=== PATIENT | female | born 1990 | race Caucasian/White ===

== ENCOUNTER 2020-04-04 09:34 | Day surgery (SDC) | payer OTHER, SELFPAY ==
--- NOTE | 2020-04-01 14:13 | HP.PCM_ITS ---
- Problem List (1) Menorrhagia Status: Acute (2) Sterilization Status: Acute History and Physical Date of Admission: 04/04/20 DATE OF SERVICE: March 25, 2020 ? PROBLEM:?Menorrhagia, desires permanent sterilization, multiparous patient, de sires IUD ? DIAGNOSIS:?As noted above ? PAST SURGICAL HISTORY:? PAST SURGICAL HISTORY PAST SURGICAL HISTORY Procedure Laterality Date ? D&C ? 02/17/2018 ? DILATION W/CURETTAGE/EVAC ? 2018 ? PAST MEDICAL HISTORY:? PAST MEDICAL HISTORY PAST MEDICAL HISTORY Diagnosis Date ? Gestational hypertension, third trimester ? ? Mental disorder ? ? depression ? SUBJECTIVE:?Using condoms consistently for BC.? ? SOCIAL HISTORY:? SOCIAL HISTORY Social History ? Tobacco Use ? Smoking status: Never Smoker ? Smokeless tobacco: Never Used Substance Use Topics ? Alcohol use: Not Currently ? ? Comment: socially ? Drug use: No ? ALLERGIES ALLERGIES No Known Allergies ? Current Outpatient Medications on File Prior to Visit Medication Sig ? ergocalciferol, vitamin D2, (VITAMIN D2 ORAL) Take by mouth. ? busPIRone (BUSPAR) 10 mg tablet Take 10 mg by mouth twice daily. ? sertraline (ZOLOFT) 100 mg tablet Take 75 mg by mouth once daily. ? ? vit/iron fum/folic ac ( 1 + 1 ORAL) Take 1 tablet by mouth once daily. ? No current facility-administered medications on file prior to visit.? ? ? OBJECTIVE: ? VITALS: BP 108/70 ? Pulse 78 ? Resp 16 ? Ht 5' 8 (1.727 m) ? Wt 199 lb 9.6 oz (90.5 kg) ? LMP 03/01/2020 ? BMI 30.35 kg/m? ? HEENT: ?Normocephalic, atraumatic, Mucus membranes moist without lesions. ? NECK: ???Soft and Supple. ?No adenopathy , thyromegaly or bruits. ? SKIN: No lesions. ? CHEST: Clear to auscultation. ?No wheezes or rales. ?Good air exchange. ? HEART: Regular rate and rhythm ?No S3 or S4. ?No gallops or rubs. ? BACK: Nontender with no CVA tenderness. ? ABDOMEN: Soft, non-tender, non-distended, no masses, no hepatosplenomegaly. ? LOWER EXTREMITIES: There was no pitting edema, no palpable cords and no skin changes. ? ? ASSESSMENT:?Desires permanent sterilization and IUD placement ? PLAN:?Discussed treatment options for menorrhagia, and patient desires progesterone IUD. Reviewed r/b/a of IUD. Reviewed laparoscopic bilateral salpingectomy, and that the procedure is permanent and irreversible. Discussed efficacy of IUD for contraception. Discussed all other forms of control. The patient states she does not desire children in the future, and she wishes to proceed with permanent sterilization.?The rationale for the proposed surgery was discussed in addition to risks, benefits, and alternatives. ?General pre- and post-operative care was reviewed. ?Questions were answered. ?After discussion, the patient indicated a desire to proceed with the planned surgery. ? Pennie Denson,?DO
[2020-04-04] VITALS (8 sets, daily range): BP systolic 113–142; BP diastolic 60–88; PULSE 52–66; RESP 14–16; TEMP 36.4–36.8; O2SAT 95–100; BMI 29.4
--- NOTE | 2020-04-04 | FALS_PTH ---
PATIENT: LAURIE PERSAUD LOC: [facility] [place] U#:[id number] AGE/SX: 29/F ROOM: RE04/04/[address]: Dr. Pennie Denson DO : 1990 BED: DIS: 04/04/2020 SPEC #: [id number] RECD: 04/04/20 14:33 STATUS: GREY PETER #: [id number] JACIEL: 04/04/20 00:[address]: Pennie Denson DEPT: SURGICAL PATHOLOGY RECD BY: Bennie Giles ENTERED: 04/05/20 08:39 SP TYPE: FALL TUBES OTHR DR: No Primary Care Phys Tissues: Fallopian tube Procedures: Surgery Specimen Level II HEADER OPERATION: Laparoscopic bilateral salpingectomy, Mirena IUD insertion PRE-OP DIAGNOSIS: Menorrhagia; sterilization TISSUE SUBMITTED: Bilateral fallopian tubes MICROSCOPIC DIAGNOSIS Right and left fallopian tubes, bilateral salpingectomies: Two complete segments of fallopian tubes with no pathologic change. AM:kandi 04/08/20 MICROSCOPIC DESCRIPTION Slides are reviewed. GROSS DESCRIPTION Received in fixative is one container labeled with the patient's name and designated bilateral fallopian tubes. The specimen consists of bilateral fallopian tubes including fimbrial ends measuring 7 cm in length and up to 0.7 cm in diameter and 6 cm in length and up to 0.7 cm in diameter. The fallopian tubes are not identified as right or left. Sections reveal unremarkable cut surfaces. Stapler Coil Unit sections are submitted in two cassettes with each cassette containing one fallopian tube. / SJ:kandi 04/05/20 TC:4 CPT: 27448 x2
[2020-04-04 10:04] LABS: Internal QC Validated? YES +Cl - CLEAR BKGD; Pregnancy, Urine Negative Negative
[2020-04-04] MEDS: Lactated Ringers 1,000 ML 100 ML IV ×2 (10:20→13:22)
[2020-04-04 10:31] LABS: Hematocrit 41.2 % (37-47); Hemoglobin 13.5 g/dL (12.0-15.0); Mean Corp Hgb Conc 32.8 g/dL (32-36); Mean Corpuscular Hgb 29.8 pg (27.0-32.0); Mean Corpuscular Volume 90.9 fL (81-99); Mean Platelet Vol. 11.1 fl (6.2-12.0); Platelet Count 240 K/mm3 (150-450); RBC Distribution Width CV 12.9 % (11.6-14.6); RBC Distribution Width SD 42.2 fl (35.1-43.9); Red Blood Count 4.53 M/mm3 (4.2-5.4); White Blood Count 5.1 K/mm3 (4.4-11.0)
--- NOTE | 2020-04-04 13:16 | DCINST_ITS ---
Discharge Diet: No Restrictions Discharge Activity: May not drive while taking narcotic pain medications., May Shower May resume sexual activity in: 1 week - Nothing in the vagina for 1 week including no hot tubs, baths, pools, tampons, interrcourse. Weight Bearing Status: Weight bearing as tolerated Lifting Restrictions: No heavy lifting greater than 5-10 lbs for 2 weeks Call your doctor if your incision/area has: Sudden Increased Bleeding, Increased Pain/ Swelling, Increased Redness, Foul Smelling Discharge, Swelling at the incision site Call your doctor if you observe: Fever of 101 or Higher, Inability to urinate, Inability to have a bowel movement, Using more than one pad per hour, Shortness of breath, Dizziness, Chest pain, Increased palpitations (irregular heartbeat), Calf discomfort, Uncontrolled pain Suture Line Care: Avoid Pulling/Pushing, Avoid Pinching/Bending Cleanse incision/area with: Soap & Water Allergies/Adverse Reactions: Allergies No Known Allergies Allergy (Verified 03/28/20 09:12) Medications to take at Discharge Sertraline HCl [Zoloft] 100 mg PO DAILY 03/28/20 busPIRone [Buspar] 10 mg PO BID 03/28/20 Orders to be completed after discharge: Type & Screen - PAT ONLY Time Frame: 04/04/20, Facility: [facility], Location: Laboratory CBC-Complete Blood Cnt No Diff Time Frame: 04/04/20, Facility: [facility], Location: Laboratory CORONAVIRUS 19, LESTER SCREEN Time Frame: 04/04/20, Facility: [facility], Location: Laboratory Primary Care Physician: Care Physician,No Primary [Primary Care Provider] - Test Results: Test results from this visit will be discussed in further detail at your follow- up appointment, if applicable. Please Follow Up With: Pennie Denson DO When: 1-2 weeks
--- NOTE | 2020-04-04 13:22 | PCM.OPRPT ---
Problem List (1) Menorrhagia Status: Acute (2) Sterilization Status: Acute Report of Operation Date of Procedure: 04/04/20 Pre-Operative Diagnosis: Desires permanent sterilization, menorrhagia, multiparous patient Post-Operative Diagnosis: As above Surgery/Procedure Performed:: Laparoscopic bilateral salpingectomy, Mirena IUD placement Description of Surgical Findings:: Normal appearing uterus, bilateral tubes, bilateral ovaries. Normal appearing pelvis. Type of Anesthesia:: General Special Medications: None Specimen's removed: Bilateral fallopian tubes Drains: None Estimated Blood Loss (mL): 10 Fluids Replaced: 800 Description of Procedure: The patient was taken to the operating room where general anesthesia was induced. She was prepped and draped in the dorsal lithotomy position using yellowfin stirrups. Weighted speculum was placed in the vagina to expose the cervix. The anterior lip of the cervix was grasped with a single-tooth tenaculum. A Renée uterine manipulator was placed for uterine manipulation. Gloves were then changed and attention was turned to the abdominal portion of the procedure. Local was infiltrated in all port sites. A 5 mm subumbilical incision was made through the skin. A 5 mm trocar was placed under direct visualization with the laparoscope. Once confirmed inside the peritoneal cavity, CO2 gas was insufflated. The abdominal cavity was examined and no injury noted upon entry. The pelvis was noted to be normal-appearing. Normal-appearing uterus, bilateral tubes, bilateral ovaries. Two additional 5 mm ports were placed, one left lateral and one right lateral. The right fallopian tube was grasped at the fimbriated end and elevated out of the pelvis. The LigaSure device was used to transect the mesosalpinx along the fallopian tube towards the cornua. The fallopian tube was then transected and removed. The same was performed on the left side to the left fallopian tube. Both fallopian tubes were sent to the pathologist for review. Hemostasis was noted. The abdomen was exsufflated and all ports were removed. Port sites were closed with 4-0 Monocryl in subcuticular fashion. Attention was then turned vaginal portion of the case. The uterine manipulator was removed. The uterus sounded to 8 cm. A Mirena IUD was placed in usual fashion. The strings were trimmed to 1 cm. All instruments removed from the vagina. Instrument and sponge counts were correct. Vaginal sweep was performed. Patient was taken recovery in stable condition. Grafts/Implants Used: Mirena IUD - Complications None - Admit VTE Documentation VTE Present on Admission: No VTE Mechan Device Prophylaxis: SCD's
[2020-04-04] MEDS: Bupivacaine Mpf 0.5% 30 ML VIAL (13:55)
== END 2020-04-04 16:50 | disposition home or self-care (01) ==
LOC: SDC 09:39 → AC 09:39
PROVIDERS: Anesthesiology; Referring Provider Obstetrics & Gynecology; Visit Provider Obstetrics & Gynecology
PROC: (CPT 58661; principal; 2020-04-04 11:00)
DX: Z30.2 Encounter for sterilization (principal); N92.0 Excessive and frequent menstruation with regular cycle; Z11.59 Encounter for screening for other viral diseases; F32.9 Major depressive disorder, single episode, unspecified; F41.9 Anxiety disorder, unspecified; Z79.899 Other long term (current) drug therapy
CPT/HCPCS: 58300; 58661; 81025; 85027; 86850; 86900; 86901; 87635; 88302; G2023; J7120; J2405; U0003